=== PATIENT | female | born 1970 | race Caucasian/White ===

== ENCOUNTER → 2016-12-17 | Outpatient (CLI) | payer OTHER ==
--- NOTE | 2016-12-17 13:15 | RAD ---
DATE: 12/17/2016 EXAM: MAMMO SAMUEL SCREENING BILATERAL, BREAST RIGHT HISTORY: Follow-up breast nodule COMPARISON: 09/20/2015 The breast parenchyma is heterogeneously dense, which could reduce sensitivity of mammography. Breast parenchyma level C. FINDINGS: 2-D and 3-D tomosynthesis imaging was performed in CC and MLO projections. A 6 mm smooth nodule is again noted posteriorly at the 7:00 location the right breast. It is unchanged. No new or enlarging breast densities are seen. No suspicious microcalcifications are evident. Right breast ultrasound, 12/17/2016: A targeted ultrasound exam of the right breast was performed at the 7:00 location. Approximately 8 cm from the nipple there is a smooth hypoechoic nodule again identified. There are faint low level internal echoes. There appears to be posterior acoustic enhancement. The nodule measures approximately 5 mm in greatest diameter. Allowing for technical factors it is essentially unchanged since studies from 02/28/2016 and 11/29/2015. IMPRESSION: 1. Unchanged benign-appearing nodule at the 7:00 location in the right breast.. Further sonographic surveillance in 6 months and then bilateral mammography at one year is suggested. 2. No mammographic evidence of malignancy in either breast. BI-RADS CATEGORY: 3 PROBABLY BENIGN FINDING(S)-SHORT INTERVAL FOLLOW-UP SUGGESTED RECOMMENDED FOLLOW-UP: 6M 6 MONTH FOLLOW-UP PQRS compliance statement: Patient information was entered into a reminder system with a target due date for the next mammogram. Mammography is a sensitive method for finding small breast cancers, but it does not detect them all and is not a substitute for careful clinical examination. A negative mammogram does not negate a clinically suspicious finding and should not result in delay in biopsying a clinically suspicious abnormality. "Our facility is accredited by the [employer] Mammography [employer]."
== END | disposition home or self-care (01) ==
LOC: KCIC MAMMO 11:38
PROVIDERS: ATTEND Obstetrics & Gynecology
DX: Z12.31 Encounter for screening mammogram for malignant neoplasm of breast (principal); N63 Unspecified lump in breast
CPT/HCPCS: 76641; 77063; G0202; 77067

== ENCOUNTER → 2017-10-28 | Outpatient (CLI) | payer OTHER | END | disposition home or self-care (01) | LOC: KCIC US 13:48 | DX: R92.8 Other abnormal and inconclusive findings on diagnostic imaging of breast (principal) | CPT/HCPCS: 76641 ==

== ENCOUNTER → 2018-01-07 | Outpatient (CLI) | payer OTHER ==
--- NOTE | 2018-01-07 14:10 | KCIC ---
Bilateral digital screening mammograms with 3-D tomosynthesis: Reason for examination: Routine screening. Comparison is made to previous studies dated 12/17/2016 and 09/20/2015. Bilateral mammograms in CC and oblique projections were obtained with 2-D imaging and 3-D tomosynthesis imaging on a Siemens Inspiration unit and reviewed on the workstation. Interpretation was made with the benefit of CAD. The skin and nipples show no abnormalities. No abnormal axillary lymph nodes are seen. The breast parenchyma is heterogeneously dense. (Breast density: Category C.) There are no dominant masses, suspicious calcifications or architectural distortion. Impression: No evidence of malignancy. Recommend routine screening. Your patient's mammogram demonstrates that she has dense breast tissue (breast density category C or D), which could hide abnormalities, and if she has other risk factors for breast cancer that have been identified, she might benefit from supplemental screening tests that may be suggested by you as her ordering physician. Dense breast tissue, in and of itself, is a relatively common condition. Therefore, this information is not provided to cause undue concern, but rather to raise your awareness and to promote discussion with your patient regarding the presence of other risk factors, in addition to dense breast tissue. Your patient's mammography results will be sent to her. BI-RAD Category 1: Negative. "Our facility is accredited by the [employer] Mammography [employer]." This patient's information has been entered into a reminder system for the patient to be notified with the results of her examination and a target date for the next mammogram. Electronically signed by: Mariya Thompson MD (01/07/2018 2:07 PM) [id number]
== END | disposition home or self-care (01) ==
LOC: KCIC MAMMO 08:55
PROVIDERS: ATTEND Obstetrics & Gynecology
DX: Z12.31 Encounter for screening mammogram for malignant neoplasm of breast (principal)
CPT/HCPCS: 77063; 77067

== ENCOUNTER → 2019-03-02 | Outpatient (CLI) | payer OTHER ==
--- NOTE | 2019-03-04 08:44 | KCIC ---
BILATERAL SCREENING MAMMOGRAM, 3-D History: Routine screening. Comparison: Bilateral mammogram January 07, 2018. Technique: MLO and CC digital tomosynthesis (3D) images obtained. Radiologist reviewed these images on dedicated workstation. Findings: Breast Tissue Density C : The breasts are heterogeneously dense, which may obscure small masses. There is a 6 mm lobular mass in the left breast 4:00 C position. There is a nodular asymmetry on the left MLO view just inferior to the nipple line at posterior depth. There is no correlate on the CC view. There are no suspicious microcalcifications or architectural distortion. IMPRESSION: 1. Small mass left breast 4:00 C position. 2. Nodular asymmetry inferior posterior left breast. 3. Recommend further evaluation with ultrasound. BI-RADS Category 0: Incomplete: Need additional imaging evaluation. The images were reviewed with computer-aided detection. Patient information is entered into reminder system with a target due date for the next screening mammogram. Mammography is the most sensitive method for finding small breast cancers, but it does not detect them all and is not a substitute for careful clinical examination. A negative mammogram does not negate a clinically suspicious finding and should not result in delay in biopsying a clinically suspicious abnormality. "Our facility is accredited by the [employer] Mammography [employer]." Electronically signed by: Rivera Moreno MD (03/04/2019 8:41 AM) [email or web address]
== END | disposition home or self-care (01) ==
LOC: KCIC MAMMO 08:38
PROVIDERS: ATTEND Obstetrics & Gynecology
DX: Z12.31 Encounter for screening mammogram for malignant neoplasm of breast (principal); N63.23 Unspecified lump in the left breast, lower outer quadrant; N64.89 Other specified disorders of breast
CPT/HCPCS: 77063; 77067

== ENCOUNTER → 2019-04-05 | Outpatient (CLI) | payer OTHER ==
--- NOTE | 2019-04-05 14:37 | KCIC ---
Left breast ultrasound: Reason for examination: Nodular density on screening mammogram. Comparison is made to mammographic exam dated 03/02/2019. Ultrasound examination of the left breast and axilla was performed. At the 3:30 position 10 cm from the nipple, there is a 7 mm septated cystic lesion. This would correspond with the area of mammographic concern. There are no other cystic or solid lesion seen. No abnormal appearing lymph nodes are seen in the axilla. IMPRESSION: Small 7 mm septated cystic lesion at the 3:30 position. No suspicious abnormality seen. Recommend 6 month follow-up with ultrasound. BI-RADS Category 3: Probably Benign. "Our facility is accredited by the [employer] Mammography Program." This patient's information has been entered into a reminder system for the patient to be notified with the results of her examination and a target date for the next mammogram. Electronically signed by: Mariya Thompson MD (04/05/2019 2:35 PM) [email or web address]
== END | disposition home or self-care (01) ==
LOC: KCIC US 13:54
PROVIDERS: ATTEND Obstetrics & Gynecology
DX: R92.8 Other abnormal and inconclusive findings on diagnostic imaging of breast (principal)
CPT/HCPCS: 76641

== ENCOUNTER → 2019-12-20 | Outpatient (CLI) | payer OTHER ==
--- NOTE | 2019-12-20 18:21 | KCIC ---
Left breast ultrasound: Reason for examination: Follow-up nodule. Comparison is made to previous study dated 04/05/2019. Ultrasound examination of the left breast and axilla was performed. At the 3:30 position 10 cm from the nipple, there is a small 4.5 mm hypoechoic lesion which has decreased in size since previous exam. There is however a hypoechoic circumscribed 8.3 mm nodule at the 3:00 position 9 cm from the nipple. No suspicious-appearing nodules are seen. No abnormal appearing lymph nodes are seen in the axilla. IMPRESSION: Small benign-appearing fibrocystic lesions at the 3:00 and 3:30 positions. No suspicious abnormality seen. Recommend 6 month follow-up with left breast ultrasound. BI-RADS Category 3: Probably Benign. "Our facility is accredited by the [employer] Mammography Program." This patient's information has been entered into a reminder system for the patient to be notified with the results of her examination and a target date for the next mammogram. Electronically signed by: Mariya Thompson MD (12/20/2019 6:18 PM) [id number]
== END | disposition home or self-care (01) ==
LOC: KCIC US 13:50
PROVIDERS: ATTEND Obstetrics & Gynecology
DX: N63.23 Unspecified lump in the left breast, lower outer quadrant (principal)
CPT/HCPCS: 76641

== ENCOUNTER → 2020-04-25 | Outpatient (CLI) | payer OTHER ==
--- NOTE | 2020-04-25 09:45 | RAD ---
Examination: MG DIGITAL BILAT DIAGNOSTIC MAMMO WITH SAMUEL History: Reason: ABNORMAL MAMMOGRAM FOLLOW UP / Spl. Instructions: / History: Comparison/Correlation: 12/17/2016, 03/02/2019; left breast ultrasound exams 04/05/2019 and 12/20/2019 Findings: Digital diagnostic CC and MLO images of each breast were obtained. CAD was utilized. Tomogr aphic images provided. Scattered fibroglandular densities are present. Small mass involving the left outer breast is present and decreased as compared to 03/02/2019. No new masses. No definite distortion. No suspicious calcifications. Impression: BI-RADS Category 3-probably benign. Small mass described involving the left breast on ultrasound exam ination of 04/05/2019 3-six-month follow-up ultrasound exam recommended to assess stability. Electronically signed by: Kwame Guerrero MD (04/25/2020 9:42 AM) [id number]
== END ==
LOC: MAMMO 07:52
PROVIDERS: ATTEND Obstetrics & Gynecology
DX: R92.8 Other abnormal and inconclusive findings on diagnostic imaging of breast (principal)
CPT/HCPCS: 77066; G0279; 77062

== ENCOUNTER → 2021-05-07 | Outpatient (CLI) | payer OTHER ==
--- NOTE | 2021-05-07 09:39 | RAD ---
EXAM: Bilateral digital diagnostic mammogram with tomosynthesis; left breast sonogram. HISTORY: 51-year-old female presents for follow-up evaluation of findings within the left breast demo nstrated on a prior sonogram dated 09/22/2019. The patient did not return at the recommended 6 month fo llow-up interval and is due for bilateral mammography. TECHNIQUE: Full-field digital craniocaudal and mediolateral oblique 2D and 3D tomosynthesis images of both breasts are obtained for evaluation. Computer aided detection was applied. Sonographic imaging of the left breast targeted to sites of prior findings was performed. COMPARISON: 04/25/2020, 12/20/2019, 03/02/2019, 01/07/2018 BREAST PARENCHYMAL DENSITY: Level C - Heterogeneously dense. FINDINGS: There is no new suspicious mass, microcalcification or region of architectural distortion. There has been interval decrease in small nodular densities within the posterior 3:00 and 3:30 positi on of the left breast. There are additional areas of nodularity within of right upper quadrants of selma th breasts which are stable and likely due to intramammary lymph nodes. Sonographic imaging of the left breast demonstrates a 5 mm cyst with internal debris at the 3:00 posi tion 9 cm from the nipple and a 5 mm cyst with internal debris at the 3:30 position 10 cm from the ni pple. These are slightly decreased in size compared to the prior study, allowing for differences in i maging technique. No new lesion is seen. IMPRESSION: 1. Slight decreased size of suspected benign complicated cysts within the posterior 3:00 and 3:30 pos ition to the left breast. 2. No new suspicious mammographic or sonographic finding. 3. BI-RADS Category 2: Benign finding(s). RECOMMENDATION: Annual mammography is recommended. If your mammogram demonstrates that you have dense breast tissue, which could hide abnormalities, and if you have other risk factors for breast cancer that have been identified, you might benefit from s upplemental screening tests that may be suggested by your ordering physician. Dense breast tissue, i n and of itself, is a relatively common condition. This information is not provided to cause undue c oncern, but rather to raise your awareness and to promote discussion with your physician regarding th e presence of other risk factors, in addition to dense breast tissue. A report of your mammography re sults will be sent to you and your physician. You should contact your physician if you have any ques tions or concerns regarding this report. Mammography is a sensitive method for finding small breast cancers, but it does not detect them all a nd is not a substitute for careful clinical examination. A negative mammogram does not negate a clin ically suspicious finding and should not result in delay in biopsying a clinically suspicious abnorma lity. PQRS compliance statement - Patient information was entered into a reminder system with a target due date for the next mammogram. "Our facility is accredited by the [employer] Mammography Program." Electronically signed by: Tosin Nielsen MD (05/07/2021 9:36 AM) [id number]
== END ==
LOC: MAMMO 08:49
PROVIDERS: ATTEND Obstetrics & Gynecology
DX: N60.02 Solitary cyst of left breast (principal); R92.8 Other abnormal and inconclusive findings on diagnostic imaging of breast
CPT/HCPCS: 76641; 77066